=== PATIENT | male | born 1980 | race Caucasian/White ===

== ENCOUNTER 2020-02-28 23:52 | Emergency (ER) | payer SELFPAY ==
[2020-02-28 23:57] VITALS: BMI 29.0
--- NOTE | 2020-02-28 23:57 | XR_ITS ---
WS: [id number] PORTABLE CHEST HISTORY: chest pain COMPARISON: None available. Very minimal interstitial thickening and haziness in the central RIGHT lung, probably RIGHT upper lob e. Otherwise lungs are clear. Normal vasculature. No pleural effusion or pneumothorax. Cardiac size: Normal. Mediastinum/Aorta: Normal mediastinum. No osseous abnormality seen. XR/XR chest 1V portable [id number] IMPRESSION: RIGHT upper lobe area of pneumonitis.
--- NOTE | 2020-02-28 23:57 | ECG_ITS ---
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 Measurements Intervals [place] Rate: 94 P: 25 VA: 136 QRS: 52 QRSD: 87 T: 29 QT: 378 QTc: 475 Interpretive Statements SINUS RHYTHM No previous ECG available for comparison Electronically Signed On 02-29-2020 21:50:57 CDT by Nica Ladd M.D. [id number]
[2020-02-29 00:04] VITALS: BP 150/83; PULSE 97; RESP 16; TEMP 36.9; O2SAT 98
--- NOTE | 2020-02-29 00:15 | ED_ITS ---
HPI - Chest Pain General: Chief Complaint: Chest Pain Stated Complaint: CHEST PAIN Time Seen by Provider: 02/28/20 23:57 Source: patient Mode of arrival: ambulatory Limitations: no limitations History of Present Illness: HPI narrative: Patient is a 39-year-old male who presents to ED today with complaints of left-sided chest pain that began several hours ago while lying in bed. Patient states pain has been constant since onset. He states pain seems to be worse with deep inhalation, movement, palpation. He denies any shortness of breath or difficulty breathing. No fevers, chills, cough. He has no previous cardiac or pulmonary history. No recent injury/trauma to chest. MD complaint: chest pain Onset (ago): hour(s) Timing of current episode: constant Prior episodes: No Onset: during rest Pain location: left chest Pain radiation: none Quality: sharp Relieving factors: other (pt given IV pain meds, nitro, aspirin by EMS and feels better upon arrival) Exacerbating factors: inspiration, palpation and movement Associated symptoms: Deny abdominal pain, dyspnea, fever(s), nausea, palpitations, syncope or vomiting Review of Systems Const: Denies: fever(s) or chills Eyes: Denies: change in vision or blurry vision Card: Reports: chest pain; Denies: palpitations, irregular heart rhythm, edema, swelling of feet/ankles, lightheadedness, syncope, pre-syncope, dyspnea on exertion, orthopnea, leg pain with exertion or acrocyanosis Resp: Denies: dyspnea, productive cough, non-productive cough, pain on inspiration, change in phlegm color, hemoptysis or chest congestion GI: Denies: abdominal pain, nausea, vomiting, heartburn or diarrhea : Denies: flank pain, difficulty urinating or dysuria Musc: Denies: neck pain, back pain or joint pain Skin/Breast: Denies: rash Neuro: Denies: headache(s), numbness in extremities, weakness in extremities or sensory changes Psych: Denies: anxiety PFSH ED PFSH: Social History Smoking and tobacco status: never smoked Physical Exam Const: COMMON NORMALS: no acute distress, average body habitus, patient oriented x3, no limitations, healthy appearing, alert and well nourished GENERAL APPEARANCE: cooperative OTHER: etoh on breath Neck/C-Spine: COMMON NORMALS: full ROM CERVICAL SPINE: Yes cervical ROM normal, No Cervical spine tenderness and No Paracervical muscle tenderness Chest: COMMONS NORMALS: normal inspection of the chest OTHER: TTP L anterior chest wall; pain also reproduced with pt taking deep breaths Resp: COMMON NORMALS: normal respiratory effort and clear to auscultation bilaterally AUSCULTATION: clear to auscultation bilaterally Cardio: COMMON NORMALS: regular rate and regular rhythm RATE: regular rate RHYTHM: regular rhythm GI: COMMON NORMALS: Normal to inspection, nondistended, normoactive bowel sounds present, Soft to palpation, non-tender, No hepatosplenomegaly present and no masses PALPATION: Yes Soft to palpation and Yes No hepatosplenomegaly present : COMMON NORMALS: Yes no CVA tenderness BLADDER/KIDNEY EXAM: Yes no CVA tenderness Back/Pelvis: COMMON NORMALS: no CVA tenderness, thoracic and lumbar spine normal to inspection, no thoracic nor lumbar tenderness and thoraco-lumbar ROM normal Extremity: COMMON NORMALS: normal to inspection GENERAL: Yes normal exam except as noted Neuro: COMMON NORMALS: patient oriented x3 SENSORIUM/ORIENTATION: Yes alert Skin: COMMON NORMALS: no rashes or lesions noted GENERAL SKIN EXAM: no rashes or lesions noted Course Vital Signs: Vital signs: Vital Signs Temperature 98.5 F 02/29/20 00:04 Pulse Rate 84 02/29/20 01:30 Respiratory Rate 16 02/29/20 01:30 Blood Pressure 153/100 02/29/20 01:30 Pulse Oximetry 97 02/29/20 01:30 MDM - Chest Pain MDM Narrative: Medical decision making narrative: pt has reproducible chest pain, a non-significant delta trop, and no ischemic changes on his EKGs; his HEART scoare is 2; pt is stable for DC with follow up with primary care; return to ED precautions given Lab Data: Labs: Lab Results 02/29/20 02/29/20 02/29/20 Range/Units 00:05 00:05 00:05 WBC 10.5 H (4.0-10.0) 10^3/ uL RBC 4.26 (4.1-5.3) 10^6/u L Hgb 13.9 (11.7-16.6) g/dL Hct 40.6 L (42.0-52.0) % MCV 95.3 H (80-94) fL MCH 32.6 (28.0-34.0) pg MCHC 34.2 (30.0-36.0) g/dL RDW 12.2 (12.1-15.1) % Plt Count 258 (130-400) 10^3/c mm MPV 10.4 (7.4-10.4) fL Neut % (Auto) 80.5 % Lymph % (Auto) 13.2 % [place] % (Auto) 4.5 % Eos % (Auto) 0.5 % Baso % (Auto) 0.5 % Neut # (Auto) 8.4 H (1.8-7.7) 10^3/u L Lymph # (Auto) 1.4 (0.8-4.8) 10^3/u L [place] # (Auto) 0.5 (0.2-0.9) 10^3/u L Eos # (Auto) 0.1 (0.0-0.8) 10^3/u L Baso # (Auto) 0.1 (0.0-0.1) 10^3/u L Nucleated RBC % (a uto) 0 % Nucleated RBCs # 0.0 /100WBC Sodium 141 (136-145) mmol/L Potassium 3.8 (3.5-5.1) mmol/L Chloride 105 (98-107) mmol/L Carbon Dioxide 24 (22-29) mmol/L Anion Gap 15.8 (5-19) BUN 14 (6-20) mg/dL Creatinine 1.3 H (0.7-1.2) mg/dL GFR Calculation 61.1 L (90-130) mL/min Glucose 120 H (65-115) mg/dL Calculated Osmolal ity 289 (285-295) mOsm/k g Calcium 9.5 (8.5-10.5) mg/dL Total Bilirubin 0.2 (0.15-1.2) mg/dL AST 47 H (0-40) U/L ALT 33 (0-41) U/L Alkaline Phosphata se 107 (40-130) IU/L Troponin T Baselin e 27 H (0-15) ng/L Troponin T 120 Min pilot point (0-15) ng/L Delta Troponin T (0-10) ABS# Total Protein 6.3 L (6.6-8.7) g/dL Albumin 4.4 (3.5-5.2) g/dL Globulin 1.9 (1.3-4.6) g/dL 02/29/20 Range/Units 01:46 WBC (4.0-10.0) 10^3/ uL RBC (4.1-5.3) 10^6/u L Hgb (11.7-16.6) g/dL Hct (42.0-52.0) % MCV (80-94) fL MCH (28.0-34.0) pg MCHC (30.0-36.0) g/dL RDW (12.1-15.1) % Plt Count (130-400) 10^3/c mm MPV (7.4-10.4) fL Neut % (Auto) % Lymph % (Auto) % [place] % (Auto) % Eos % (Auto) % Baso % (Auto) % Neut # (Auto) (1.8-7.7) 10^3/u L Lymph # (Auto) (0.8-4.8) 10^3/u L [place] # (Auto) (0.2-0.9) 10^3/u L Eos # (Auto) (0.0-0.8) 10^3/u L Baso # (Auto) (0.0-0.1) 10^3/u L Nucleated RBC % (a uto) % Nucleated RBCs # /100WBC Sodium (136-145) mmol/L Potassium (3.5-5.1) mmol/L Chloride (98-107) mmol/L Carbon Dioxide (22-29) mmol/L Anion Gap (5-19) BUN (6-20) mg/dL Creatinine (0.7-1.2) mg/dL GFR Calculation (90-130) mL/min Glucose (65-115) mg/dL Calculated Osmolal ity (285-295) mOsm/k g Calcium (8.5-10.5) mg/dL Total Bilirubin (0.15-1.2) mg/dL AST (0-40) U/L ALT (0-41) U/L Alkaline Phosphata se (40-130) IU/L Troponin T Baselin e (0-15) ng/L Troponin T 120 Min pilot point 26.15 H (0-15) ng/L Delta Troponin T -0.85 L (0-10) ABS# Total Protein (6.6-8.7) g/dL Albumin (3.5-5.2) g/dL Globulin (1.3-4.6) g/dL Imaging Data^: CXR: My impression: rotated exam but otherwise normal; reviewed with Dr. Valderrama EKG Data^: EKG 1: EKG interpretation date: 02/29/20 EKG interpretation time: 00:30 Interpretation: Sinus rhythm Rate [address] elevation or depression changes noted Discharge Plan Discharge Patient Disposition: Home, Self-Care Clinical Impression: Non-cardiac chest pain Condition: Stable Prescriptions: No Action lisinopril 20 mg Tablet 20 mg PO DAILY RF: 0 Discharge Orders: Discharge Order (Routine); Ordered 02/29/20 Ordered By: Andreina Montejo Patient Instructions: Chest Pain - Chest Wall Activity Restrictions/Additional Instructions: Follow up with primary care as soon as possible if symptoms persist. You may return to the ED for any concerns you may have. Coding Level of Care Code ED [facility] Officer for Chg Fwd Exam Comprehensive
[2020-02-29 00:23] LABS: Basophils # 0.1 10^3/uL (0.0-0.1); Basophils % 0.5 %; Eosinophils # 0.1 10^3/uL (0.0-0.8); Eosinophils % 0.5 %; Hematocrit 40.6 % (42.0-52.0); Hemoglobin 13.9 g/dL (11.7-16.6); Lymphocytes # 1.4 10^3/uL (0.8-4.8); Lymphocytes % 13.2 %; Mean Corpuscular HGB Conc 34.2 g/dL (30.0-36.0); Mean Corpuscular Hemoglobin 32.6 pg (28.0-34.0); Mean Corpuscular Volume 95.3 fL (80-94); Mean Platelet Volume 10.4 fL (7.4-10.4); Monocytes # 0.5 10^3/uL (0.2-0.9); Monocytes % 4.5 %; Neutrophils # 8.4 10^3/uL (1.8-7.7); Neutrophils % 80.5 %; Nucleated Red Blood Cells % 0 %; Platelet Count 258 10^3/cmm (130-400); Red Blood Count 4.26 10^6/uL (4.1-5.3); Red Cell Distribution Width 12.2 % (12.1-15.1); White Blood Count 10.5 10^3/uL (4.0-10.0)
[2020-02-29 00:34] LABS: Alanine Aminotransferase 33 U/L (0-41); Albumin Level 4.4 g/dL (3.5-5.2); Alkaline Phosphatase 107 IU/L (40-130); Anion Gap 15.8 (5-19); Aspartate Amino Transferase 47 U/L (0-40); Blood Urea Nitrogen 14 mg/dL (6-20); Calcium 9.5 mg/dL (8.5-10.5); Carbon Dioxide 24 mmol/L (22-29); Chloride 105 mmol/L (98-107); Globulin 1.9 g/dL (1.3-4.6); Glomerular Filtration Rate 61.1 mL/min (90-130); Glucose 120 mg/dL (65-115); Osmolality Calculated 289 mOsm/kg (285-295); Potassium 3.8 mmol/L (3.5-5.1); Sodium 141 mmol/L (136-145); Total Bilirubin 0.2 mg/dL (0.15-1.2); Total Protein 6.3 g/dL (6.6-8.7)
[2020-02-29 01:24] LABS: Troponin(5th) Baseline 27 ng/L (0-15)
[2020-02-29 01:30] VITALS: BP 153/100; PULSE 84; RESP 16; O2SAT 97
--- NOTE | 2020-02-29 01:57 | ECG_ITS ---
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 Measurements Intervals [place] Rate: 92 P: 3 MD: 137 QRS: 9 QRSD: 92 T: 13 QT: 384 QTc: 477 Interpretive Statements SINUS RHYTHM MODERATE VOLTAGE CRITERIA FOR LVH, CONSIDER NORMAL VARIANT [MEETS CRITERIA IN ONE OF: R(aVL), S(V1), R(V5), R(V5/V6)+S(V1)] INFERIOR MYOCARDIAL INFARCTION , PROBABLY OLD [40+ ms Q WAVE AND/OR ST/T ABNORMALITY IN II/aVF] No previous ECG available for comparison Electronically Signed On 02-29-2020 21:52:22 CDT by Nica Ladd M.D. [id number] f
[2020-02-29 02:34] LABS: Troponin 5 2HR 26.15 ng/L (0-15)
[2020-02-29 02:39] LABS: Troponin 5 2HR Delta -0.85 ABS# (0-10)
[2020-02-29 02:46] VITALS: BP 142/88; PULSE 86; RESP 16; O2SAT 98
== END 2020-02-29 02:48 | disposition home or self-care (01) ==
PROVIDERS: Emergency Provider Physician Assistant
DX: R07.89 Other chest pain (principal)
CPT/HCPCS: 12345; 71045; 80053; 84484; 85025; 93005; 99282; 99283

== ENCOUNTER → 2020-06-25 15:19 | Outpatient (BNVA) | payer SELFPAY | PROVIDERS: Visit Provider Emergency Medicine | DX: J02.9 Acute pharyngitis, unspecified (principal) | CPT/HCPCS: 87071; 87880 ==

== ENCOUNTER 2021-04-15 21:02 | Emergency (ER) | payer SELFPAY ==
[2021-04-15] VITALS (9 sets, daily range): BP systolic 130–158; BP diastolic 87–109; PULSE 91–98; RESP 16–24; TEMP 36.6; O2SAT 97–99; BMI 29.0
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
[2021-04-15 21:47] LABS: Basophils # 0.1 10^3/uL (0.0-0.1); Basophils % 0.5 %; Eosinophils # 0.1 10^3/uL (0.0-0.8); Eosinophils % 0.6 %; Hematocrit 42.7 % (42.0-52.0); Hemoglobin 14.9 g/dL (11.7-16.6); Lymphocytes # 1.4 10^3/uL (0.8-4.8); Lymphocytes % 10.8 %; Mean Corpuscular HGB Conc 34.9 g/dL (30.0-36.0); Mean Corpuscular Hemoglobin 33.2 pg (28.0-34.0); Mean Corpuscular Volume 95.1 fL (80-94); Mean Platelet Volume 10.7 fL (7.4-10.4); Monocytes # 0.6 10^3/uL (0.2-0.9); Monocytes % 4.8 %; Neutrophils # 11.06 10^3/uL (1.8-7.7); Neutrophils % 82.9 %; Nucleated Red Blood Cells % 0 %; Platelet Count 303 10^3/cmm (130-400); Red Blood Count 4.49 10^6/uL (4.1-5.3); White Blood Count 13.4 10^3/uL (4.0-10.0)
[2021-04-15] MEDS: iohexol 350 mg/mL 100 mL Btl IV (21:49)
[2021-04-15 21:52] LABS: INR 0.99 (0.8-1.2)
[2021-04-15] MEDS: morphine 4 mg/mL SDV 1 mL IVP (22:02)
[2021-04-15 22:03] LABS: Alanine Aminotransferase 16 U/L (0-41); Albumin Level 4.3 g/dL (3.5-5.2); Alkaline Phosphatase 112 IU/L (40-130); Anion Gap 15.5 (5-19); Aspartate Amino Transferase 23 U/L (0-40); Blood Urea Nitrogen 12 mg/dL (6-20); Calcium 8.6 mg/dL (8.5-10.5); Carbon Dioxide 23 mmol/L (22-29); Chloride 107 mmol/L (98-107); Globulin 2.9 g/dL (1.3-4.6); Glomerular Filtration Rate 66.7 mL/min (90-130); Glucose 116 mg/dL (65-115); Lipase 25 U/L (13-60); Osmolality Calculated 295 mOsm/kg (285-295); Potassium 3.5 mmol/L (3.5-5.1); Sodium 142 mmol/L (136-145); Total Bilirubin 0.3 mg/dL (0.15-1.2); Total Protein 7.2 g/dL (6.6-8.7)
[2021-04-15] MEDS: HYDROmorphone 1 mg/mL INJ 1 mL IVP (22:16)
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
--- NOTE | 2021-04-15 22:38 | PC.NURSE ---
MODERATE AMOUNT OF DRIED BLOOD TO RIGHT PARIETAL, TEMPORAL SCALP WITH APPROXIMATE 3 CM LACERATION NOTED. BRUISING TO RIGHT EYELID. PT REPORTS 10/10 PAIN TO RIGHT ELBOW, RIGHT RIBS, RIGHT HIP. PT REFUSED TO ALLOW STAFF TO ASSIST HIM INTO A GOWN AND STOOD AT THE BEDSIDE; TAKING OFF HIS JEANS. I APPRECIATE THE HELP, BUT LET ME DO IT! STAFF STOOD WITHIN A 2 FT DISTANCE TO ENSURE PT SAFETY. PT ASSISTED TO BED TO COMPLETE EXAM. ODOR OF ETOH PRESENT. RIGHT ELBOW WITH MODERATE AMOUNT OF SWELLING AND 2 SMALL OPEN AREAS WITH DRIED BLOOD. APPROXIMATELY 2 CM IN LENGTH. NO ACTIVE BLEEDING. NO DEFORMITY NOTED TO RIGHT HIP OR RIGHT ELBOW. PT REPORTS INCREASE IN PAIN WITH INSPIRATION. NO BRUISING NOTED TO RIBS.
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
[2021-04-15] MEDS: sodium chloride 0.9% 1,000 ML 999 ML IV (23:03)
[2021-04-15] MEDS: nicardipine 20 MG/200 ML PREMIX 50 MG IV (23:46)
[2021-04-15] MEDS: tetanus-dipt-pertussis 0.5 mL SDV IM (23:49)
[2021-04-16] VITALS: BP 132/82; PULSE 94; RESP 16; O2SAT 99
[2021-04-16 00:10] VITALS: RESP 16; O2SAT 99
[2021-04-16] MEDS: fentaNYL 50 mcg/mL INJ 2mL IVP (00:10)
[2021-04-16 01:10] VITALS: BP 113/83; PULSE 83; RESP 18; TEMP 37.2; O2SAT 98
== END 2021-04-16 01:05 ==
PROVIDERS: Emergency Provider Emergency Medicine
DX: S06.4X0A Epidural hemorrhage without loss of consciousness, initial encounter (principal); S70.01XA Contusion of right hip, initial encounter; I10 Essential (primary) hypertension; R40.2412 Glasgow coma scale score 13-15, at arrival to emergency department; V86.59XA Driver of other special all-terrain or other off-road motor vehicle injured in nontraffic accident, initial encounter
CPT/HCPCS: 70450; 71045; 71275; 72170; 73060; 73070; 73090; 74174; 80053; 83690; 85025; 85610; 90471; 90715; 96365; 96375; 99291; 99292; J1170; J2270; J3010; J7030; Q9967

== ENCOUNTER → 2023-02-24 10:00 | Outpatient (BNVA) | payer OTHER, SELFPAY | PROVIDERS: Visit Provider Emergency Medicine | DX: S62.631A Displaced fracture of distal phalanx of left index finger, initial encounter for closed fracture (principal); X58.XXXA Exposure to other specified factors, initial encounter | CPT/HCPCS: 73130; 73140 ==

== ENCOUNTER → 2024-02-02 10:47 | Outpatient (BNVA) | payer OTHER, SELFPAY | PROVIDERS: PCP Nurse Practitioner Family; Visit Provider Emergency Medicine | DX: B34.9 Viral infection, unspecified (principal); J10.1 Influenza due to other identified influenza virus with other respiratory manifestations; I10 Essential (primary) hypertension | CPT/HCPCS: 87400 ==